=== PATIENT | female | born 1960 | race Caucasian/White ===

== ENCOUNTER → 2021-08-04 16:16 | Outpatient (CLI) | payer BC, SELFPAY ==
--- NOTE | ~2021-08-04 | XR_ITS ---
EXAM: XR foot RT standing 2V, XR foot LT standing 2V DATE: 08/04/2021 17:08 HISTORY: M19.90 - Unspecified osteoarthritis, unspecified site . COMPARISON: None available. FINDINGS: Severely decreased mineralization. No fracture or dislocation. No lytic or blastic lesion. Mild joint space narrowing at the bilateral MTP joints and in multiple interphalangeal joints and th e toes. Prominent bilateral plantar enthesopathy. No erosion or periosteal change. Soft tissues withi n normal limits. IMPRESSION: Severe osteopenia. Mild scattered osteoarthritic changes in the bilateral first MTP joint s and toes. Reviewed, dictated and finalized at location K. IMPRESSION: Severe osteopenia. Mild scattered osteoarthritic changes in the russell ateral first MTP joints and toes.
--- NOTE | ~2021-08-04 | XR_ITS ---
EXAM: XR hand BI arthritis min 3V DATE: 08/04/2021 17:08 HISTORY: M19.90 - Unspecified osteoarthritis, unspecified site . COMPARISON: None available. FINDINGS: Decreased mineralization. Old left ulnar styloid fracture. No acute fracture or dislocatio n. No lytic or blastic lesion. Mild joint space narrowing at the radiocarpal joints, triscaphe joints , trapeziometacarpal joints, and interphalangeal joints of the fingers bilaterally. No erosion or per iosteal change. Soft tissues within normal limits. IMPRESSION: Mild osteoarthritic changes in the bilateral hands and wrists. Reviewed, dictated and finalized at location K.
== END ==
PROVIDERS: PCP Family Medicine; Visit Provider Internal Medicine
DX: M85.871 Other specified disorders of bone density and structure, right ankle and foot (principal); M85.872 Other specified disorders of bone density and structure, left ankle and foot; M19.041 Primary osteoarthritis, right hand; M19.042 Primary osteoarthritis, left hand; M19.031 Primary osteoarthritis, right wrist; M19.032 Primary osteoarthritis, left wrist
CPT/HCPCS: 73130; 73620

== ENCOUNTER 2023-12-09 14:46 | Outpatient (CLI) | payer OTHER, SELFPAY ==
--- NOTE | ~2023-12-09 | MM_ITS ---
EXAMINATION: MM screening cr BI w pj HISTORY: Screening mammogram TECHNIQUE: Craniocaudal and mediolateral oblique 3-D tomosynthesis images were obtained and synthetic 2-D images were generated. CAD analysis was submitted and interpreted. COMPARISON: No prior mammogram is available for comparison at this institution. BREAST PARENCHYMAL COMPOSITION:Not Dense. The breasts are almost entirely fatty FINDINGS: No suspicious mass, calcification, or architectural distortion are identified in either adolph ast to suggest malignancy. There has been no suspicious interval change. IMPRESSION: No mammographic evidence of malignancy. Recommend routine screening mammography in one year. BI-RADS Category 1: Negative Reviewed, dictated and finalized at location .
== END 2023-12-09 14:47 | disposition home or self-care (01) ==
LOC: CHSIMG 14:48
PROVIDERS: PCP Family Medicine; Visit Provider Physician Assistant
DX: Z12.31 Encounter for screening mammogram for malignant neoplasm of breast (principal)
CPT/HCPCS: 77063; 77067